=== PATIENT | female | born 1945 | race Caucasian/White ===

== ENCOUNTER 2017-03-16 11:07 | Outpatient (CLI) | payer SELFPAY | END 2017-03-16 11:08 | disposition EMS.NT | LOC: EMS 11:07 | PROVIDERS: ATTEND Surgery | DX: Z04.1 Encounter for examination and observation following transport accident (principal); V43.54XA Car driver injured in collision with van in traffic accident, initial encounter; Y92.414 Local residential or business street as the place of occurrence of the external cause ==

== ENCOUNTER 2017-04-02 09:12 | Emergency (ER) | payer MEDICARE, OTHER ==
[2017-04-02] MEDS ORDERED: DEXAMETHASONE 10 MG/ML VIAL IVP STA (10:07)
[2017-04-02] MEDS ORDERED: HYDROmorphone 1 MG/ML SYRINGE IVP STA ×2 (10:07→12:41)
[2017-04-02] MEDS ORDERED: cefTRIAXone 1 GM in SODIUM CHLORIDE 0.9% MINIBAG 100 ML IV STA (10:07)
--- NOTE | 2017-04-02 10:10 | ED Physician Documentation ---
History of Present Illness - Stated complaint Stated Complaint: FACIAL PX - Chief complaint Chief Complaint: General - History obtained from History obtained from: Patient - History of Present Illness Timing: Yesterday - Additonal information Additional information: 72-year-old female with a history of trigeminal neuralgia has had a spike in her symptoms starting yesterday and she had intolerable pain all night last night. She comes into the emergency department in tears with an ice bag to the left side of her face complaining of intermittent severe sharp stabbing pain to the face. She has had improvement with lamotrigine and this does not seem to be helping at the current time. She did not get improvement with use of Tegretol. She denies any current illness denies any cough or ear pain or problems with her teeth. Review of Systems Constitutional: denies: Fever Eyes: denies: Decreased vision Ears: denies: Ear pain Nose: reports: Congestion. denies: Rhinorrhea / runny nose Throat: denies: Sore throat Cardiac: denies: Chest pain / pressure, Palpitations Respiratory: denies: Dyspnea, Cough GI: denies: Abdominal Pain, Nausea, Vomiting : denies: Dysuria, Frequency Skin: denies: Rash Musculoskeletal: denies: Neck pain Neurologic: reports: Headache. denies: Generalized weakness, Focal weakness, Numbness, Head injury, LOC PD PAST MEDICAL HISTORY - Present Medications Home Medications: Ambulatory Orders Medication Instructions Recorded Confirmed Azithromycin [Zithromax] 250 mg PO DAILY #6 tablet 04/02/17 HYDROcod/ACETAM 5/325 [[place] 5/325] 1 - 2 ea PO Q6H PRN #15 tablet 04/02/17 Lamotrigine [Lamictal (Blue)] 25 mg PO DAILY 04/02/17 04/02/17 Lamotrigine [Lamotrigine ER] 1 tab PO BID 04/02/17 04/02/17 raNITIdine [Zantac] 150 mg PO DAILY 04/02/17 04/02/17 - Allergies Allergies/Adverse Reactions: Allergies Allergy/AdvReac Type Severity Reaction Status Date / Time No Known Drug Allergies Allergy Verified 04/02/17 09:20 PD ED PE NORMAL - Vitals Vital signs reviewed: Yes (Hypertensive mild) - General General: Alert and oriented X 3, Well developed/nourished, Other (72-year-old female is crying in pain clutching the left side of her face with an ice bag and whimpering. She looks miserable.) - HEENT HEENT: Atraumatic, PERRL, EOMI, Other - Neck Neck: Supple, no meningeal sign, No bony TTP - Cardiac Cardiac: RRR, No murmur - Respiratory Respiratory: No respiratory distress, Clear bilaterally - Abdomen Abdomen: Soft, Non tender - Back Back: No CVA TTP, No spinal TTP - Derm Derm: Normal color, Warm and dry, No rash - Extremities Extremities: No deformity, No edema - Neuro Neuro: No motor deficit, No sensory deficit Eye Opening: Spontaneous Motor: Obeys Commands Verbal: Oriented GCS Score: 15 Results - Vitals Vitals: Vital Signs - 24 hr 04/02/17 04/02/17 04/02/17 09:18 11:00 12:17 Temperature 37.3 C Heart Rate 87 81 84 Respiratory 16 16 18 Rate Blood Pressure 137/83 H 130/114 H 134/72 H O2 Saturation 100 97 95 Oxygen O2 Source Room air - Labs Labs: Laboratory Tests 04/02/17 04/02/17 10:18 10:18 WBC 7.4 RBC 5.15 Hgb 15.5 Hct 45.0 MCV 87.4 MCH 30.0 MCHC 34.4 RDW 14.5 Plt Count 345 MPV 7.2 L Neut # 5.9 Lymph # 1.0 L [place] # 0.4 Eos # 0.1 Baso # 0.1 Absolute Nucleated RBC 0.01 Nucleated RBC % 0.2 Sodium 136 Potassium 3.1 L Chloride 94 L Carbon Dioxide 21 Anion Gap 21.0 H BUN 19 Creatinine 0.8 Estimated GFR (MDRD) 70 L Glucose 121 H Calcium 10.0 Total Bilirubin 1.2 H AST 25 ALT 19 Alkaline Phosphatase 130 H Total Protein 8.5 H Albumin 4.8 Globulin 3.7 Albumin/Globulin Ratio 1.3 Lipase 20 L PD MEDICAL DECISION MAKING - ED course Complexity details: reviewed old records, reviewed results, re-evaluated patient , considered differential, d/w patient ED course: 73-year-old female with trigeminal neuralgia has an acute pain crisis that is not ameliorated with her lamotrigine. She has left OM on exam and this is treated aggressively as a potential trigger for her pain crisis. She is administered dexamethasone Rocephin and Dilaudid. She has some improvement in her overall pain but continues to have pain. Departure - Departure Disposition: 01 Home, Self Care Clinical Impression: Trigeminal neuralgia of left side of face Otitis media Qualifiers: Otitis media type: suppurative Chronicity: acute Laterality: left Recurrence: not specified as recurrent Spontaneous tympanic membrane rupture: without spontaneous rupture Qualified Code(s): H66.002 - Acute suppurative otitis media without spontaneous rupture of ear drum, left ear Condition: Stable Instructions: ED Otitis Media Acute Adult, ED Neuralgia Trigeminal Follow-Up: CARLO TRONCOSO I [Primary Care Provider] - Prescriptions: Azithromycin [Zithromax] 250 mg PO DAILY #6 tablet HYDROcod/ACETAM 5/325 [[place] 5/325] 1 - 2 ea PO Q6H PRN #15 tablet PRN Reason: Pain
[2017-04-02 10:27] LABS: BASOPHILS # (AUTO) 0.1 10^3/uL (0.0-0.1); BASOPHILS % (AUTO) 0.7 %; EOSINOPHILS # (AUTO) 0.1 10^3/uL (0.0-0.7); EOSINOPHILS % (AUTO) 1.1 %; HGB - HEMOGLOBIN 15.5 g/dL (12.0-16.0); LYMPHOCYTES % (AUTO) 14.1 %; MEAN CORPUSCULAR HGB CONC 34.4 g/dL (32.0-36.0); MEAN CORPUSCULAR VOLUME 87.4 fL (81.0-99.0); MEAN PLATELET VOLUME 7.2 fL (7.9-10.8); MONOCYTES # (AUTO) 0.4 10^3/uL (0.0-1.0); MONOCYTES % (AUTO) 5.1 %; NEUTROPHILS # (AUTO) 5.9 10^3/uL (1.5-6.6); PLT - PLATELET COUNT 345 10^3/uL (130-450); RED BLOOD COUNT 5.15 10^6/uL (4.20-5.40); RED CELL DISTRIBUTION WIDTH 14.5 % (12.0-15.0); WHITE BLOOD COUNT 7.4 x10^3/uL (4.8-10.8)
[2017-04-02 10:49] LABS: ALBUMIN 4.8 g/dL (3.2-5.5); ALBUMIN/GLOBULIN RATIO 1.3 (1.0-2.2); BILIRUBIN,TOTAL 1.2 mg/dL (0.2-1.0); CREATININE 0.8 mg/dL (0.4-1.0); TOTAL PROTEIN 8.5 g/dL (6.7-8.2)
[2017-04-02] MEDS ORDERED: POTASSIUM CHLORIDE 20 MEQ TABLET PO STA (12:29)
[2017-04-02] MEDS ORDERED: POTASSIUM BICARB 25 MEQ TABLET PO STA (12:31)
[2017-04-02 14:10] VITALS: BP 140/69
[2017-04-02] MEDS ORDERED: HYDROcod/ACETAM 5/325 MG TABLET PO STA (14:57)
== END 2017-04-02 15:02 | disposition home or self-care (01) ==
LOC: ED 09:12
DX: G50.0 Trigeminal neuralgia (principal); H66.002 Acute suppurative otitis media without spontaneous rupture of ear drum, left ear
CPT/HCPCS: 36415; 80053; 83690; 85025; 99283; 99284; A9270; J1170

== ENCOUNTER 2017-04-03 06:12 | Emergency (ER) | payer MEDICARE, OTHER ==
[2017-04-03] MEDS ORDERED: carBAMazepine 200 MG TABLET PO STA (06:25)
[2017-04-03] MEDS ORDERED: LIDOCAINE VISCOUS 2% 15 ML UDC MM STA (07:26)
[2017-04-03] MEDS ORDERED: KETOROLAC 30 MG/ML VIAL IM STA (07:27)
--- NOTE | 2017-04-03 07:32 | ED Physician Documentation ---
History of Present Illness - Stated complaint Stated Complaint: EAR PAIN - Chief complaint Chief Complaint: General - Additonal information Additional information: hx from pt all hx obtained through writing notes as pt indicates it is too painful for her to speak she states she was diagnosed with trigeminal neuralgia by a neurologist in [place] and had a work up including MRI at that time states shetried tegretol and it didn't work now takes lamotrigine has done well until last 2 weeks was seen at [facility] ED 2 weeks ago for trigeminal neuralgia flare and again in our ER yesterday will try and get records from [facility] in our ER yesterday pt was txed with steroids and dilaudid and dc with vicodin and also dx with AOM and txed with rocephin and dced on zmax pain persist pt indicates pain is to her L cheek region and that is is painful to speak or open her mouth she states this feels just like her prior trigeminal neuralgia denies fever cough NVD rash states has been compliant with her meds Review of Systems Constitutional: denies: Fever, Chills Cardiac: denies: Chest pain / pressure Respiratory: denies: Dyspnea GI: denies: Abdominal Pain Neurologic: reports: Other (L facial pain). denies: Focal weakness, Numbness PD PAST MEDICAL HISTORY - Past Medical History Past Medical History: Yes GI: GERD Other Past Medical History: Trigeminal Neuralgia - Past Surgical History Past Surgical History: No - Present Medications Home Medications: Ambulatory Orders Medication Instructions Recorded Confirmed Azithromycin [Zithromax] 250 mg PO DAILY #6 tablet 04/02/17 04/03/17 HYDROcod/ACETAM 5/325 [[place] 5/325] 1 - 2 ea PO Q6H PRN #15 tablet 04/02/17 Lamotrigine [Lamictal (Blue)] 25 mg PO DAILY 04/02/17 04/03/17 Lamotrigine [Lamotrigine ER] 1 tab PO BID 04/02/17 04/03/17 raNITIdine [Zantac] 150 mg PO DAILY 04/02/17 04/03/17 Phenytoin [Dilantin] 100 mg PO TID 04/03/17 04/03/17 - Allergies Allergies/Adverse Reactions: Allergies Allergy/AdvReac Type Severity Reaction Status Date / Time No Known Drug Allergies Allergy Verified 04/03/17 06:22 - Social History Does the pt smoke?: No Smoking Status: Never smoker Does the pt drink ETOH?: No Does the pt have substance abuse?: No - Immunizations Immunizations are current?: Yes - POLST Patient has POLST: No PD ED PE NORMAL - Vitals Vital signs reviewed: Yes - HEENT HEENT: PERRL, Ears normal. No: Moist mucous membranes (sticky, hurts to have [ t open her mouth, her mouth is pasty, she is diffusley tender to touch her face and in her mouth but no specific tooth seems swollen or tender) - Neck Neck: Supple, no meningeal sign - Cardiac Cardiac: RRR - Respiratory Respiratory: No respiratory distress, Clear bilaterally - Derm Derm: Other (both cheeks mildly flushed but no shingles rash) - Neuro Neuro: Alert and oriented X 3, global consumer sector vice president 2-12 intact, No motor deficit, No sensory deficit. No: Normal speech (too painful to speak) Results - Vitals Vitals: Vital Signs - 24 hr 04/03/17 04/03/17 04/03/17 06:14 06:42 08:05 Temperature 36.7 C Heart Rate 98 94 88 Respiratory 20 18 16 Rate Blood Pressure 140/109 H 138/60 H 145/65 H O2 Saturation 100 100 100 Oxygen O2 Source Room air PD MEDICAL DECISION MAKING - ED course ED course: pt better with toradol and lido in ear and mouth already on lamotrogine already has rx for pain meds planned to dc but pt not wanting to go home stating she does not think she can care for herself I asked if she had any friends or family she might stay with and she told me no - but i asked where she lived and she said [place] - so i asked what brought her to [facility] this AM and she says she is staying with a friend. explained that trigeminal neuralgia is not usually a problem pt need to be admitted for she indicates she was admitted before got records from [place] and it seems pt was actually admitted for same there due to inability to take PO meds and fluids per hospitalist note from [facility], neuro was consulted and recommend load dilantin which helped, her steroids and dilaudid were dced, she was supposed to be dced on dilantin ER 100 TID, lamictal 100 qam 50 noon 12 qpm as well as asa flovent HCTZ ranitidine, sertraline zantac and Vit D the chart from [place] also indicates pt is allergic to carbamazapine but I am not sure that is accurate because when i suggested that to pt she declined saying it would not work and she was given carbamazapine by date night caregiver s any apparent adverse rxn (and without any improvement) I asked the pt if she was taking her dilantin and she says yes but also says she is almost out - not clear why her neuro would not have refilled when she saw him/her , and in any case she has not taken for at least two days because she was in the ER all day yesterday and it does not seem that she mentioned that as one of her rx either visit so was not given, she can't recall if she took any last night or not - if she did it was about 3 AM will given dilantin 100 (not load), pt continuing to swab lido as needed, SW consult pending - seen by SW and concerns were addressed and per SW now pt feels safe going home Departure - Departure Disposition: 01 Home, Self Care Clinical Impression: Trigeminal neuralgia of left side of face Condition: Good Instructions: ED Neuralgia Trigeminal Comments: Continue your medications as prescribed including the dilantin. Sine the oral lidocaine helped here you can try oragel available over the counter (use only as directed on the package not more) I recommend you see a dentist. Drink plenty of fluids. Follow up with your neurologist this week. Discharge Date/Time: 04/03/17 10:26
[2017-04-03 08:06] VITALS: BP 145/65
[2017-04-03] MEDS ORDERED: PHENYTOIN ER 100 MG CAPSULE PO STA (08:16)
== END 2017-04-03 10:26 | disposition home or self-care (01) ==
LOC: EDUNIT# → ED 06:12
DX: G50.0 Trigeminal neuralgia (principal); K21.9 Gastro-esophageal reflux disease without esophagitis
CPT/HCPCS: 96372; 99283; 99284; A9270

== ENCOUNTER 2017-04-05 07:35 | Outpatient (CLI) | payer MEDICARE, OTHER | END 2017-04-05 07:36 | disposition critical access hospital (66) | LOC: EMS 07:35 | PROVIDERS: ATTEND Surgery | DX: R51 Headache (principal) | CPT/HCPCS: A0425; A0429 ==

== ENCOUNTER 2017-04-05 08:02 | Observation (INO) | payer MEDICARE, OTHER ==
[2017-04-05] MEDS ORDERED: HYDROmorphone 1 MG/ML SYRINGE IVP STA ×2 (08:25→14:07)
[2017-04-05] MEDS ORDERED: SODIUM CHLORIDE 0.9% 1,000 ML IV ONE ×2 (08:25→16:15)
[2017-04-05] MEDS ORDERED: DEXAMETHASONE 10 MG/ML VIAL IVP STA (08:25)
[2017-04-05] MEDS ORDERED: ONDANSETRON 4 MG/2 ML VIAL IVP STA (08:25)
--- NOTE | 2017-04-05 08:27 | ED Physician Documentation ---
History of Present Illness - Stated complaint Stated Complaint: FACIAL NERVE PX - History obtained from History obtained from: Patient - History of Present Illness Timing: How many weeks ago (2) - Additonal information Additional information: 72-year-old female has had a flare in her trigeminal neuralgia pain over the past 2 weeks. This became severe about 4 days ago when she came to the emergency department. At that point she was treated for otitis media she was given some dose of pain medication and this seem to help somewhat. Patient did at that time appear completely miserable with this pain. She has been in tears. At that time she was having a background severe pain and sharp lancinating pains on top of that. She has continued to have this pain and she was returned to the emergency department today with pain crisis and today she does not appear to be having the sharp winching pains as strong as she was 4 days ago. She however states that she is still having these sharp lancinating pains.She has been into see her neurologist and her dosing regimen for her lamotragine was adjusted. Today she returns to the emergency department still with pain crisis and she has not been able to eat or drink. Review of Systems Constitutional: reports: Myalgias, Fatigue. denies: Fever Eyes: denies: Decreased vision Ears: reports: Ear pain Nose: reports: Congestion Throat: reports: Dental pain / toothache Cardiac: denies: Chest pain / pressure, Palpitations Respiratory: denies: Dyspnea, Cough GI: reports: Constipation. denies: Abdominal Pain, Nausea, Vomiting : denies: Dysuria, Frequency Skin: denies: Rash Musculoskeletal: denies: Neck pain, Back pain, Extremity pain, Joint swelling Neurologic: reports: Difficulty speaking (triggers pain). denies: Generalized weakness, Focal weakness, Numbness Psychiatric: reports: Insomnia PD PAST MEDICAL HISTORY - Past Medical History GI: GERD - Past Surgical History Past Surgical History: No - Present Medications Home Medications: Ambulatory Orders Medication Instructions Recorded Confirmed Azithromycin [Zithromax] 250 mg PO DAILY #6 tablet 04/02/17 04/03/17 HYDROcod/ACETAM 5/325 [[place] 5/325] 1 - 2 ea PO Q6H PRN #15 tablet 04/02/17 Lamotrigine [Lamictal (Blue)] 25 mg PO DAILY 04/02/17 04/03/17 Lamotrigine [Lamotrigine ER] 1 tab PO BID 04/02/17 04/03/17 raNITIdine [Zantac] 150 mg PO DAILY 04/02/17 04/03/17 Phenytoin [Dilantin] 100 mg PO TID 04/03/17 04/03/17 HYDROmorphone [Dilaudid] 2 mg Q6H PRN 04/05/17 04/05/17 - Allergies Allergies/Adverse Reactions: Allergies Allergy/AdvReac Type Severity Reaction Status Date / Time No Known Drug Allergies Allergy Verified 04/05/17 08:34 - Social History Does the pt smoke?: No Smoking Status: Never smoker Does the pt drink ETOH?: No Does the pt have substance abuse?: No - Immunizations Immunizations are current?: Yes - POLST Patient has POLST: No PD ED PE NORMAL - Vitals Vital signs reviewed: Yes (hypertensive ) - General General: Alert and oriented X 3, Well developed/nourished, Other (The patient appears in pain and appears fatigued. She speaks slowly and carfully to avoid exacerbation. ) - HEENT HEENT: Atraumatic, PERRL, EOMI, Other (The left TM is with less inflamation today ) - Neck Neck: Supple, no meningeal sign, No bony TTP - Cardiac Cardiac: RRR, No murmur - Respiratory Respiratory: No respiratory distress, Clear bilaterally - Abdomen Abdomen: Soft, Non tender - Back Back: No CVA TTP, No spinal TTP - Derm Derm: Normal color, Warm and dry, No rash - Extremities Extremities: No deformity, No edema - Neuro Neuro: No motor deficit, No sensory deficit Eye Opening: Spontaneous Motor: Obeys Commands Verbal: Oriented GCS Score: 15 - Psych Psych: Other (mood is helpless and the affect is blunted. ) Results - Vitals Vitals: Vital Signs - 24 hr 04/05/17 04/05/17 04/05/17 08:05 08:30 09:30 Temperature 36.8 C Heart Rate 85 81 77 Respiratory 16 16 20 Rate Blood Pressure 162/85 H 153/70 H 150/73 H O2 Saturation 100 100 93 04/05/17 04/05/17 04/05/17 10:00 11:00 14:15 Temperature Heart Rate 82 84 85 Respiratory 16 18 Rate Blood Pressure 142/73 H 143/72 H 140/65 H O2 Saturation 93 93 96 Oxygen O2 Source Room air - EKG (time done) 1205 Rate: Rate (enter#) (76) Rhythm: NSR [place]: LAD Ischemia: Q waves Compare to prior EKG: Old EKG unavailable Computer interpretation: Agree with computer - Labs Labs: Laboratory Tests 04/05/17 04/05/17 04/05/17 08:45 08:45 08:45 WBC 7.4 RBC 4.98 Hgb 15.2 Hct 44.0 MCV 88.3 MCH 30.4 MCHC 34.5 RDW 14.2 Plt Count 359 MPV 7.0 L Neut # 6.3 Lymph # 0.7 L [place] # 0.3 Eos # 0.0 Baso # 0.0 Absolute Nucleated RBC 0.00 Nucleated RBC % 0.0 Sodium 137 Potassium 3.2 L Chloride 96 L Carbon Dioxide 23 Anion Gap 18.0 H BUN 17 Creatinine 0.7 Estimated GFR (MDRD) 82 L Glucose 141 H Calcium 9.8 Total Bilirubin 1.0 AST 23 ALT 15 Alkaline Phosphatase 108 Troponin I 0.07 Total Protein 8.2 Albumin 4.8 Globulin 3.4 Albumin/Globulin Ratio 1.4 Lipase 25 04/05/17 11:02 WBC RBC Hgb Hct MCV MCH MCHC RDW Plt Count MPV Neut # Lymph # [place] # Eos # Baso # Absolute Nucleated RBC Nucleated RBC % Sodium Potassium Chloride Carbon Dioxide Anion Gap BUN Creatinine Estimated GFR (MDRD) Glucose Calcium Total Bilirubin AST ALT Alkaline Phosphatase Troponin I 0.11 Total Protein Albumin Globulin Albumin/Globulin Ratio Lipase Procedures - IVC sono (time) 0820 Bedside IVC sono: IVC measures (cm) (0.92), IVC collapsed c insp (cm) (complete) , Dehydration (est 1.5 liters) PD MEDICAL DECISION MAKING - ED course Complexity details: reviewed old records, reviewed results, re-evaluated patient , considered differential, d/w patient ED course: 72-year-old female with a history of trigeminal neuralgia is having a pain crisis. Her pain crisis is bad enough that she has not been able to eat or drink for the past 4 days. She has not been able to sleep. She did go to another hospital emergency department yesterday and was prescribed some Dilaudid to take orally. She did not take this medication as it did not seem to be effective. Here today she appears dehydrated and IV saline is begun she is given a dose of dexamethasone and some hydromorphone. She has some relief with the hydromorphone but pain returns and she requires a second dose. She is in the emergency department for hours and her troponin is in the indeterminate range and a repeat is also in the indeterminate range. The patient appears to be in distress related to this pain crisis and I believe she needs a break from her pain and I have offered to talk to the hospitalist about admission for pain control and hydration. Dr. Saldaña has graciously agreed to care for the patient in the hospital. Departure - Departure Disposition: ED Place in Observation Clinical Impression: Trigeminal neuralgia of left side of face, Dehydration
[2017-04-05 08:54] LABS: BASOPHILS % (AUTO) 0.6 %; EOSINOPHILS % (AUTO) 0.6 %; HGB - HEMOGLOBIN 15.2 g/dL (12.0-16.0); LYMPHOCYTES # (AUTO) 0.7 10^3/uL (1.5-3.5); LYMPHOCYTES % (AUTO) 9.9 %; MEAN CORPUSCULAR HEMOGLOBIN 30.4 pg (27.0-31.0); MEAN CORPUSCULAR HGB CONC 34.5 g/dL (32.0-36.0); MEAN CORPUSCULAR VOLUME 88.3 fL (81.0-99.0); MONOCYTES # (AUTO) 0.3 10^3/uL (0.0-1.0); MONOCYTES % (AUTO) 3.7 %; NEUTROPHILS # (AUTO) 6.3 10^3/uL (1.5-6.6); NEUTROPHILS % (AUTO) 85.2 %; PLT - PLATELET COUNT 359 10^3/uL (130-450); RED BLOOD COUNT 4.98 10^6/uL (4.20-5.40); RED CELL DISTRIBUTION WIDTH 14.2 % (12.0-15.0); WHITE BLOOD COUNT 7.4 x10^3/uL (4.8-10.8)
[2017-04-05 09:08] LABS: ALBUMIN 4.8 g/dL (3.2-5.5); ALBUMIN/GLOBULIN RATIO 1.4 (1.0-2.2); CALCIUM 9.8 mg/dL (8.5-10.3); CREATININE 0.7 mg/dL (0.4-1.0); TOTAL PROTEIN 8.2 g/dL (6.7-8.2)
[2017-04-05] MEDS ORDERED: POTASSIUM BICARB 25 MEQ TABLET PO STA (10:01)
--- NOTE | 2017-04-05 15:09 | ED Physician Documentation ---
ED Addendum - Addendum Addendum: 04/05/17 15:09 unscheduled return visit - chart accessed for follow up and educational purposes
[2017-04-05] MEDS ORDERED: PROMETHAZINE 25 MG/1 ML VIAL IM PRN (16:54)
[2017-04-05] MEDS ORDERED: ONDANSETRON 4 MG/2 ML VIAL IVP PRN (16:54)
[2017-04-05] MEDS ORDERED: ACETAMINOPHEN 325 MG TABLET PO PRN (16:54)
[2017-04-05] MEDS ORDERED: SODIUM CHLORIDE FLUSH 0.9% 10 ML SYRINGE IVP PRN (16:54)
[2017-04-05] MEDS ORDERED: HYDROcod/ACETAM 5/325 MG TABLET PO PRN (16:54)
[2017-04-05] MEDS ORDERED: PROCHLORPERAZINE 10 MG/2 ML VIAL IVP PRN (16:54)
--- NOTE | 2017-04-05 17:16 | HISTORY & PHYSICAL EXAMINATION ---
Chief Complaint - Chief Complaint Chief Complaint: Left facial pain History of Present Illness - Admitted From Admitted From:: Emergency Department - History Obtained From Records Reviewed: Yes History obtained from: Patient Exam Limitations: Patient could not speak much due to pain - History of Present Illness HPI Comment/Other: Patient is a 72-year-old female with a past medical history significant for trigeminal neuralgia, hypertension and breast cancer status post 2 lumpectomies and radiation therapy who presented to the emergency department with a chief complaint of left facial pain. The patient states that she has a history of trigeminal neuralgia which was diagnosed more than 5 years ago. She states that from time to time she does have flares of her trigeminal neuralgia. She states that in the past she has been on carbamazepine but then had to be switched to phenytoin and lamotrigine. She states that her most recent trigeminal neuralgia flare started about a week ago. She states that she has been having shooting pain in her left facial area specifically over her left cheek and down into her left jaw. She states that the pain is a 10 out of 10 at its worst and it comes and goes. She states when it becomes severe it is intolerable. She states that she did see her neurologist in [place] on and had labs drawn but has had no further contact with her neurologist and has not had any changes in her doses of medication. The patient states that she has been in the emergency department 4 days in a row. She initially came here to [facility] and was treated with pain medication and then sent home on Vicodin. She then returned and again was treated with pain medication and fluids. The patient states that she was then discharged on Dilaudid p.o. The patient then went to [place] where she was seen again and released after being given pain medication. The patient states that over the last 4 days she has been unable to eat anything due to the severe pain when she tries to chew or put anything in her mouth. She states she is also been unable to sleep for the last 3 days because of the severity of the pain. The patient was having a left ear ache and was found to have otitis media over the weekend and started on antibiotics and given a dose of steroids. The patient states that despite the antibiotic she has not had any improvement in her symptoms. She returns again today to the emergency department as the pain is just not improving. The patient otherwise denies any headaches, blurred vision, runny nose, sore throat, nasal congestion, neck pain, difficulty swallowing, neck stiffness, chest pain, shortness of air, orthopnea, PND, increased lower extremity swelling , abdominal pain, nausea, vomiting, diarrhea, constipation, back pain, joint pain, joint swelling, muscle aches, recent unintentional weight loss, changes in her appetite, rash or any focal neurologic deficits. On presentation to the emergency department the patient was afebrile she was hypertensive but otherwise her vital signs were within normal limits. The patient did appear to be in significant distress and was unable to talk initially when she arrived in the emergency department secondary to her severe pain. In the emergency department the patient was given several doses of IV Dilaudid, IV fluid and Decadron. The patient's labs did reveal that she was dehydrated that she did have an elevated anion gap with decreased chloride and potassium. The patient's CBC and remainder of her electrolytes were within normal limits. Given that this was the patient's fourth presentation to the emergency department in the last 4 days with no significant improvement in her symptoms the patient was placed in observation for intractable pain from trigeminal neuralgia. History - Past Medical History Cardiovascular: reports: Hypertension Respiratory: reports: None Neuro: reports: Other (Trigeminal Neuralgia ) Endocrine/Autoimmune: reports: None GI: reports: GERD ASSOCIATE BROKER: reports: Breast cancer MRSA Hx?: No Other Past Medical History: trigeminal neuralgia - Past Surgical History General: reports: Cholecystectomy /ASSOCIATE BROKER: reports: Hysterectomy - Family & Social History Family History Comment/Other: Patient is estranged from her mother and her son. She does not know of any illnesses that run in her family. Living arrangement: At home Living Situation: Alone Social History Notes: Patient lives in [place] and has a neurologist in [place] by the name of Dr. Llanes. She lives alone and has been twice. Most recently her 4 years ago. She states that he had Alzheimer's. 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 [place] friends who live in [place]. The patient has never smoked, she does not drink alcohol and she denies any illicit drug use. The patient gave to 1 son whom she is estranged from. - POLST Patient has POLST: No POLST Status: Full Code Meds/Allgy - Home Medications Home Medications: Ambulatory Orders Medication Instructions Recorded Confirmed Azithromycin [Zithromax] 250 mg PO DAILY #6 tablet 04/02/17 04/03/17 HYDROcod/ACETAM 5/325 [[place] 5/325] 1 - 2 ea PO Q6H PRN #15 tablet 04/02/17 Lamotrigine [Lamictal (Blue)] 25 mg PO DAILY 04/02/17 04/03/17 Lamotrigine [Lamotrigine ER] 1 tab PO BID 04/02/17 04/03/17 raNITIdine [Zantac] 150 mg PO DAILY 04/02/17 04/03/17 Phenytoin [Dilantin] 100 mg PO TID 04/03/17 04/03/17 HYDROmorphone [Dilaudid] 2 mg Q6H PRN 04/05/17 04/05/17 - Allergies Allergies/Adverse Reactions: Allergies Allergy/AdvReac Type Severity Reaction Status Date / Time No Known Drug Allergies Allergy Verified 04/05/17 08:34 Review of Systems - Other Findings Other Findings: A comprehensive review of systems was performed the pertinent positives and negatives are stated above in the HPI and the remainder of the review of systems is negative. Exam - Vital Signs Reviewed Vital Signs: Yes Vital Signs: Vital Signs x48h Pulse Resp BP Pulse Ox 04/05/17 16:23 88 16 145/72 H 100 04/05/17 14:15 85 18 140/65 H 96 04/05/17 11:00 84 143/72 H 93 04/05/17 10:00 82 16 142/73 H 93 04/05/17 09:30 77 20 150/73 H 93 - Physical Exam General Appearance: positive: Alert, Moderate distress (Facial pain, patient is grimacing and has difficulty getting comfortable.), Other (The patient cannot speak for long periods of time due to her severe pain.) Eyes Bilateral: positive: Normal inspection, PERRL, EOMI, No lid inflammation, Conjunctivae nml, No scleral icterus ENT: positive: ENT inspection nml, Pharynx nml, Dry mucous membranes. negative : Purulent nasal drainage, Pharyngeal erythema, Oral lesions Neck: positive: Nml inspection, Thyroid nml, No JVD, Trachea midline. negative : Thyromegaly, Lymphadenopathy (R), Lymphadenopathy (L), Stiff neck, Carotid bruit, Tracheal deviation Respiratory: positive: Chest non-tender, No respiratory distress, Breath sounds nml. negative: Wheezes, Rales, Rhonchi Cardiovascular: positive: Regular rate & rhythm, No murmur, No gallop Peripheral Pulses: positive: 2+ Abdomen: positive: Non-tender, No organomegaly, Nml bowel sounds, No distention. negative: Guarding, Rebound, Hepatomegaly Back: positive: Nml inspection. negative: CVA tenderness (R), CVA tenderness (L ) Skin: positive: Color nml, No rash, Warm. negative: Cyanosis, Diaphoresis Extremities: positive: Non-tender, Full ROM, Nml appearance, No pedal edema Neurologic/Psychiatric: positive: Oriented x3, CN's nml (2-12), Motor nml, Sensation nml, Mood/affect nml. negative: Facial droop Conclusion/Plan - Problem List (1) Trigeminal neuralgia of left side of face Conclusion/Plan: The patient presents with trigeminal neuralgia of her left face. The patient has had severe symptoms for the last 4 days. She did see her neurologist for 5 days ago but did not have any adjustments made to her medications. She states the pain has been unbearable and despite being sent home with p.o. Vicodin and p.o. Dilaudid she has been unable to get the pain under control. The patient states that she is also not been able to eat or drink anything for the last 4 days. She states that she has not been able to sleep for the last 3 days. The patient's pain did not improve despite several doses of IV Dilaudid in the emergency department therefore the patient is being placed in observation for intractable pain due to trigeminal neuralgia. Plan: Patient is currently on lamotrigine 100 mg p.o. twice daily so we will increase the patient's lamotrigine dose to 200 mg p.o. twice daily which according to studies is the most effective dose for trigeminal neuralgia. The patient will be continued on her home dose of phenytoin and we will start the patient on baclofen 5 mg 3 times daily as adjuvant therapy to try to better control the patient's trigeminal neuralgia pain. Patient will also be placed on Tylenol, Vicodin and IV Dilaudid as needed for breakthrough pain. If patient's pain is still not controlled with this new regimen we will speak with her neurologist Dr. Llanes at [place] for further recommendations. The patient continues to fail medical therapy she may need surgical therapy. (2) Hypertension Conclusion/Plan: Patient does have a history of hypertension and is hypertensive on presentation to the emergency department. Patient's hypertension is likely secondary to pain. The patient does state that she takes hydrochlorothiazide at home. We will continue the patient's home dose of hydrochlorothiazide and try to do a better job of pain control. We will monitor the patient's blood pressure daily and titrate medication as needed. Qualifiers: Hypertension type: essential hypertension Qualified Code(s): I10 - Essential (primary) hypertension (3) Otitis media Conclusion/Plan: The patient was diagnosed with left ear otitis media several days ago and has been taking azithromycin at home. We will continue the patient's home dose of azithromycin to complete treatment for her otitis media. The patient's otitis media could be a factor in her worsening trigeminal neuralgia. Qualifiers: Otitis media type: suppurative Chronicity: acute Laterality: left Recurrence: not specified as recurrent Spontaneous tympanic membrane rupture: without spontaneous rupture Qualified Code(s): H66.002 - Acute suppurative otitis media without spontaneous rupture of ear drum, left ear (4) Hypokalemia Conclusion/Plan: Patient appears to be dehydrated with dry mucous membranes. This is likely secondary to her poor oral intake secondary to severe pain from trigeminal neuralgia over the last 3 days. Patient will be given IV fluids and potassium replacement We will monitor patient's potassium - Lab Results Lab results reviewed: Yes Fish Bones: 04/05/17 08:45 04/05/17 08:45 Other Lab Results: Laboratory Results WBC 7.4 x10^3/uL (4.8-10.8) 04/05/17 08:45 RBC 4.98 10^6/uL (4.20-5.40) 04/05/17 08:45 Hgb 15.2 g/dL (12.0-16.0) 04/05/17 08:45 Hct 44.0 % (37.0-47.0) 04/05/17 08:45 MCV 88.3 fL (81.0-99.0) 04/05/17 08:45 MCH 30.4 pg (27.0-31.0) 04/05/17 08:45 MCHC 34.5 g/dL (32.0-36.0) 04/05/17 08:45 RDW 14.2 % (12.0-15.0) 04/05/17 08:45 Plt Count 359 10^3/uL (130-450) 04/05/17 08:45 MPV 7.0 fL (7.9-10.8) L 04/05/17 08:45 Neut # 6.3 10^3/uL (1.5-6.6) 04/05/17 08:45 Lymph # 0.7 10^3/uL (1.5-3.5) L 04/05/17 08:45 [place] # 0.3 10^3/uL (0.0-1.0) 04/05/17 08:45 Eos # 0.0 10^3/uL (0.0-0.7) 04/05/17 08:45 Baso # 0.0 10^3/uL (0.0-0.1) 04/05/17 08:45 Absolute Nucleated RBC 0.00 x10^3/uL 04/05/17 08:45 Nucleated RBC % 0.0 /100WBC 04/05/17 08:45 Sodium 137 mmol/L (135-145) 04/05/17 08:45 Potassium 3.2 mmol/L (3.5-5.0) L 04/05/17 08:45 Chloride 96 mmol/L (101-111) L 04/05/17 08:45 Carbon Dioxide 23 mmol/L (21-32) 04/05/17 08:45 Anion Gap 18.0 (6-13) H 04/05/17 08:45 BUN 17 mg/dL (6-20) 04/05/17 08:45 Creatinine 0.7 mg/dL (0.4-1.0) 04/05/17 08:45 Estimated GFR (MDRD) 82 (>89) L 04/05/17 08:45 Glucose 141 mg/dL (70-100) H 04/05/17 08:45 Calcium 9.8 mg/dL (8.5-10.3) 04/05/17 08:45 Total Bilirubin 1.0 mg/dL (0.2-1.0) 04/05/17 08:45 AST 23 IU/L (10-42) 04/05/17 08:45 ALT 15 IU/L (10-60) 04/05/17 08:45 Alkaline Phosphatase 108 IU/L (42-121) 04/05/17 08:45 Troponin I 0.11 ng/mL (<0.49) 04/05/17 11:02 Total Protein 8.2 g/dL (6.7-8.2) 04/05/17 08:45 Albumin 4.8 g/dL (3.2-5.5) 04/05/17 08:45 Globulin 3.4 g/dL (2.1-4.2) 04/05/17 08:45 Albumin/Globulin Ratio 1.4 (1.0-2.2) 04/05/17 08:45 Lipase 25 U/L (22-51) 04/05/17 08:45 - EKG Results EKG Interpreted Independently: Yes EKG Findings: No ST elevations or ischemic changes are noted per Core Measures - Anticipated LOS I expect patient to be DC'd or transferred within 96 hours.: Yes - DVT/VTE - Prophylaxis VTE/DVT Prophylaxis med ordered at admit?: Yes
[2017-04-05] MEDS: SODIUM CHLORIDE FLUSH 0.9% 10 ML SYRINGE IVP SCH ×2 (18:24→22:22)
[2017-04-05] MEDS: HYDROmorphone 1 MG/ML SYRINGE IVP PRN ×2 (19:43→22:22)
[2017-04-05] MEDS: BACLOFEN 10 MG TABLET PO SCH ×2 (19:44→21:06)
[2017-04-05] MEDS: PHENYTOIN ER 100 MG CAPSULE PO SCH ×2 (19:44→21:06)
[2017-04-05] MEDS: hydroCHLOROthiazide 25 MG TABLET PO SCH (19:44)
[2017-04-05] MEDS: lamoTRIgine 100 MG TABLET PO SCH ×2 (19:45→21:06)
[2017-04-05] MEDS: SODIUM CHLORIDE 0.9% 1,000 ML IV SCH (19:46)
[2017-04-06] MEDS ORDERED: diphenhydrAMINE INJ 50 MG/ML VIAL IM STA (00:13)
[2017-04-06] MEDS: HYDROcod/ACETAM 10 MG/325 MG TABLET PO PRN ×2 (00:22→05:39)
[2017-04-06] MEDS: HYDROmorphone 1 MG/ML SYRINGE IVP PRN ×2 (00:23→04:57)
[2017-04-06] MEDS: SODIUM CHLORIDE 0.9% 1,000 ML IV SCH ×2 (03:18→13:40)
[2017-04-06] MEDS: PHENYTOIN ER 100 MG CAPSULE PO SCH ×3 (05:39→20:52)
[2017-04-06] MEDS: BACLOFEN 10 MG TABLET PO SCH ×3 (05:39→20:52)
[2017-04-06 05:54] LABS: BASOPHILS # (AUTO) 0.1 10^3/uL (0.0-0.1); BASOPHILS % (AUTO) 0.9 %; EOSINOPHILS # (AUTO) 0.2 10^3/uL (0.0-0.7); EOSINOPHILS % (AUTO) 2.4 %; HGB - HEMOGLOBIN 13.3 g/dL (12.0-16.0); LYMPHOCYTES # (AUTO) 1.8 10^3/uL (1.5-3.5); LYMPHOCYTES % (AUTO) 27.2 %; MEAN CORPUSCULAR HEMOGLOBIN 30.6 pg (27.0-31.0); MEAN CORPUSCULAR HGB CONC 33.7 g/dL (32.0-36.0); MEAN CORPUSCULAR VOLUME 90.8 fL (81.0-99.0); MEAN PLATELET VOLUME 7.1 fL (7.9-10.8); MONOCYTES # (AUTO) 0.6 10^3/uL (0.0-1.0); MONOCYTES % (AUTO) 8.5 %; PLT - PLATELET COUNT 326 10^3/uL (130-450); RED BLOOD COUNT 4.34 10^6/uL (4.20-5.40); RED CELL DISTRIBUTION WIDTH 14.1 % (12.0-15.0); WHITE BLOOD COUNT 6.5 x10^3/uL (4.8-10.8)
[2017-04-06 06:07] LABS: ALBUMIN 3.8 g/dL (3.2-5.5); ALBUMIN/GLOBULIN RATIO 1.5 (1.0-2.2); BILIRUBIN,TOTAL 0.8 mg/dL (0.2-1.0); CALCIUM 8.7 mg/dL (8.5-10.3); CREATININE 0.6 mg/dL (0.4-1.0); MAGNESIUM 1.8 mg/dL (1.7-2.8); PHOSPHORUS 2.5 mg/dL (2.5-4.6); TOTAL PROTEIN 6.4 g/dL (6.7-8.2)
[2017-04-06] MEDS: SODIUM CHLORIDE FLUSH 0.9% 10 ML SYRINGE IVP SCH ×2 (06:22→13:55)
[2017-04-06] MEDS ORDERED: PANTOPRAZOLE 40 MG VIAL IVP SCH (07:00)
[2017-04-06] MEDS ORDERED: HYDROmorphone 1 MG/ML SYRINGE IVP PRN (08:43)
[2017-04-06] MEDS: POTASSIUM CHLOR 10 MEQ/100 ML 10 MEQ/100 ML BAG IV SCH ×4 (08:53→12:57)
[2017-04-06] MEDS: hydroCHLOROthiazide 25 MG TABLET PO SCH (08:53)
[2017-04-06] MEDS: lamoTRIgine 100 MG TABLET PO SCH ×2 (08:53→20:52)
[2017-04-06] MEDS ORDERED: ENOXAPARIN 40 MG/0.4 ML SYRINGE SUBQ SCH (09:00)
[2017-04-06] MEDS ORDERED: AZITHROMYCIN 250 MG TABLET PO SCH (09:00)
[2017-04-06] MEDS ORDERED: SERTRALINE 50 MG TABLET PO SCH (09:00)
[2017-04-06] MEDS ORDERED: POLYETHYLENE GLYCOL 3350 17 GM PACKET PO SCH (09:00)
--- NOTE | 2017-04-06 14:10 | Discharge Plan ---
Discharge Plan Disposition: Home, Self Care Condition: Fair Prescriptions: HYDROcod/ACETAM 5/325 [[place] 5/325] 1 tab PO Q4HR PRN #14 tablet PRN Reason: Pain 5 to 7 Baclofen [Lioresal] 5 mg PO TID #60 tablet lamoTRIgine [LaMICtal] 200 mg PO BID #60 tablet Diet: Soft Activity Restrictions: Activity as Tolerated Shower Restrictions: No Driving Restrictions: No Weight Bearing: Full Weight Instruction Topics: ED Neuralgia Trigeminal Additional Instructions or Follow Up instructions: You had a flare of your trigeminal neuralgia and pain was so bad you were not able to take your medication or eat therefore the flare became worse and you became dehydrated. You were able to tolerate a full liquid diet while you were hospitalized and you were given IV fluid and electrolytes. You appear better hydrated. You were also able to take the oral medications for trigeminal neuralgia and pain did improve while you were hospitalized. We have added a new medication for your trigeminal neuralgia called baclofen which you will continue to take 3 times a day. Also we changed your dose of the lamotrigine to 200 mg twice a day and we wrote you a new prescription for that. You will continue taking the phenytoin three times a day and we have given you a prescription for norco which you can use for breakthrough pain. Please follow up with your PCP and your neurologist as soon as you can get an appointment. No Smoking: If you smoke, Please STOP! Call for help. Follow-up with: CARLO TRONCOSO I [Primary Care Provider] -
--- NOTE | 2017-04-06 14:39 | DISCHARGE SUMMARY ---
Discharge Summary Admit Date: 04/05/17 Discharge Date: 04/06/17 Discharging Provider: Moises Saldaña MD Primary Care Provider: Lena Roy MD Code Status: Attempt Resuscitation Condition at Discharge: Fair Discharge Disposition: [facility] DC/Xfer - DIAGNOSES Admission Diagnoses: 1. Trigeminal neuralgia of the left side of face 2. Hypertension 3. Otitis media 4. Hypokalemia Discharge Diagnoses with Status of Each Condition: 1. Trigeminal neuralgia of the left side of face: Stable 2. Hypertension: Stable 3. Otitis media: Stable 4. Hypokalemia: Improved - HPI History of Present Illness: Patient is a 72-year-old female with a past medical history significant for trigeminal neuralgia, hypertension and breast cancer status post 2 lumpectomies and radiation therapy who presented to the emergency department with a chief complaint of left facial pain. The patient states that she has a history of trigeminal neuralgia which was diagnosed more than 5 years ago. She states that from time to time she does have flares of her trigeminal neuralgia. She states that in the past she has been on carbamazepine but then had to be switched to phenytoin and lamotrigine. She states that her most recent trigeminal neuralgia flare started about a week ago. She states that she has been having shooting pain in her left facial area specifically over her left cheek and down into her left jaw. She states that the pain is a 10 out of 10 at its worst and it comes and goes. She states when it becomes severe it is intolerable. She states that she did see her neurologist in [place] on and had labs drawn but has had no further contact with her neurologist and has not had any changes in her doses of medication. The patient states that she has been in the emergency department 4 days in a row. She initially came here to [facility] and was treated with pain medication and then sent home on Vicodin. She then returned and again was treated with pain medication and fluids. The patient states that she was then discharged on Dilaudid p.o. The patient then went to [place] where she was seen again and released after being given pain medication. The patient states that over the last 4 days she has been unable to eat anything due to the severe pain when she tries to chew or put anything in her mouth. She states she is also been unable to sleep for the last 3 days because of the severity of the pain. The patient was having a left ear ache and was found to have otitis media over the weekend and started on antibiotics and given a dose of steroids. The patient states that despite the antibiotic she has not had any improvement in her symptoms. She returns again today to the emergency department as the pain is just not improving. The patient otherwise denies any headaches, blurred vision, runny nose, sore throat, nasal congestion, neck pain, difficulty swallowing, neck stiffness, chest pain, shortness of air, orthopnea, PND, increased lower extremity swelling , abdominal pain, nausea, vomiting, diarrhea, constipation, back pain, joint pain, joint swelling, muscle aches, recent unintentional weight loss, changes in her appetite, rash or any focal neurologic deficits. On presentation to the emergency department the patient was afebrile she was hypertensive but otherwise her vital signs were within normal limits. The patient did appear to be in significant distress and was unable to talk initially when she arrived in the emergency department secondary to her severe pain. In the emergency department the patient was given several doses of IV Dilaudid, IV fluid and Decadron. The patient's labs did reveal that she was dehydrated that she did have an elevated anion gap with decreased chloride and potassium. The patient's CBC and remainder of her electrolytes were within normal limits. Given that this was the patient's fourth presentation to the emergency department in the last 4 days with no significant improvement in her symptoms the patient was placed in observation for intractable pain from trigeminal neuralgia. - HOSPITAL COURSE Hospital Course: Patient was admitted for intractable pain due to her trigeminal neuralgia. While hospitalized the the patient's trigeminal neuralgia medication was adjusted as her lamotrigine dose was increased to 200 mg p.o. twice daily and she was started on baclofen 5 mg 3 times a day while her phenytoin home dose was continued. She was placed on p.o. Gates and IV Dilaudid for breakthrough pain. The patient was also given potassium replacement and IV fluids as she had not been able to eat or drink for several days due to the pain. While patient was hospitalized she was able to tolerate a full liquid diet and able to take her trigeminal neuralgia medications by mouth. The patient did require 2 doses of IV Dilaudid when she initially came to the floor however the next morning the patient was able to control pain with just oral Gates. The patient was continued on treatment for otitis media with azithromycin. The patient was continued on her home blood pressure medication and was stable throughout the hospitalization. Although patient's pain had not completely resolved the pain seem to be controlled enough that she was able to be discharged home and given prescriptions for baclofen, Gates and lamotrigine. The patient was asked to follow-up with her primary care physician and her neurologist as soon as possible. She was discharged in stable condition - ALLERGIES Allergies/Adverse Reactions: Allergies Allergy/AdvReac Type Severity Reaction Status Date / Time No Known Drug Allergies Allergy Verified 04/05/17 08:34 - MEDICATIONS Home Medications: Ambulatory Orders Medication Instructions Recorded Confirmed Phenytoin [Dilantin] 100 mg PO TID 04/03/17 04/05/17 Sertraline [Zoloft] 50 mg PO DAILY 04/05/17 04/05/17 hydroCHLOROthiazide 25 mg PO DAILY 04/05/17 04/05/17 [Hydrochlorothiazide] Baclofen [Lioresal] 5 mg PO TID #60 tablet 04/06/17 HYDROcod/ACETAM 5/325 [[place] 5/325] 1 tab PO Q4HR PRN #14 tablet 04/06/17 lamoTRIgine [LaMICtal] 200 mg PO BID #60 tablet 04/06/17 - PHYSICAL EXAM AT DISCHARGE General Appearance: positive: Alert, Mild distress (Left facial pain) Eyes Bilateral: positive: Normal inspection, PERRL, EOMI, No lid inflammation, Conjunctivae nml, No scleral icterus ENT: positive: ENT inspection nml, Pharynx nml, Dry mucous membranes. negative : Purulent nasal drainage, Pharyngeal erythema, Oral lesions Neck: positive: Nml inspection, Thyroid nml, No JVD, Trachea midline. negative : Thyromegaly, Lymphadenopathy (R), Lymphadenopathy (L), Stiff neck, Carotid bruit, Tracheal deviation Respiratory: positive: Chest non-tender, No respiratory distress, Breath sounds nml. negative: Wheezes, Rales, Rhonchi Cardiovascular: positive: Regular rate & rhythm, No murmur, No gallop Peripheral Pulses: positive: 2+ Abdomen: positive: Non-tender, No organomegaly, Nml bowel sounds, No distention. negative: Guarding, Rebound, Hepatomegaly Back: positive: Nml inspection. negative: CVA tenderness (R), CVA tenderness (L ) Skin: positive: Color nml, No rash, Warm. negative: Cyanosis, Diaphoresis Extremities: positive: Non-tender, Full ROM, Nml appearance, No pedal edema Neurologic/Psychiatric: positive: Oriented x3, CN's nml (2-12), Motor nml, Sensation nml. negative: Facial droop - LABS Result Diagrams: 04/06/17 05:34 04/06/17 05:34 Other Lab Results: Laboratory Results WBC 6.5 x10^3/uL (4.8-10.8) 04/06/17 05:34 RBC 4.34 10^6/uL (4.20-5.40) 04/06/17 05:34 Hgb 13.3 g/dL (12.0-16.0) 04/06/17 05:34 Hct 39.4 % (37.0-47.0) 04/06/17 05:34 MCV 90.8 fL (81.0-99.0) 04/06/17 05:34 MCH 30.6 pg (27.0-31.0) 04/06/17 05:34 MCHC 33.7 g/dL (32.0-36.0) 04/06/17 05:34 RDW 14.1 % (12.0-15.0) 04/06/17 05:34 Plt Count 326 10^3/uL (130-450) 04/06/17 05:34 MPV 7.1 fL (7.9-10.8) L 04/06/17 05:34 Neut # 4.0 10^3/uL (1.5-6.6) 04/06/17 05:34 Lymph # 1.8 10^3/uL (1.5-3.5) 04/06/17 05:34 [place] # 0.6 10^3/uL (0.0-1.0) 04/06/17 05:34 Eos # 0.2 10^3/uL (0.0-0.7) 04/06/17 05:34 Baso # 0.1 10^3/uL (0.0-0.1) 04/06/17 05:34 Absolute Nucleated RBC 0.00 x10^3/uL 04/06/17 05:34 Nucleated RBC % 0.0 /100WBC 04/06/17 05:34 Sodium 138 mmol/L (135-145) 04/06/17 05:34 Potassium 3.1 mmol/L (3.5-5.0) L 04/06/17 05:34 Chloride 101 mmol/L (101-111) 04/06/17 05:34 Carbon Dioxide 25 mmol/L (21-32) 04/06/17 05:34 Anion Gap 12.0 (6-13) 04/06/17 05:34 BUN 13 mg/dL (6-20) 04/06/17 05:34 Creatinine 0.6 mg/dL (0.4-1.0) 04/06/17 05:34 Estimated GFR (MDRD) 98 (>89) 04/06/17 05:34 Glucose 82 mg/dL (70-100) 04/06/17 05:34 Lactic Acid 1.1 mmol/L (0.5-2.2) 04/06/17 05:34 Calcium 8.7 mg/dL (8.5-10.3) 04/06/17 05:34 Phosphorus 2.5 mg/dL (2.5-4.6) 04/06/17 05:34 Magnesium 1.8 mg/dL (1.7-2.8) 04/06/17 05:34 Total Bilirubin 0.8 mg/dL (0.2-1.0) 04/06/17 05:34 AST 20 IU/L (10-42) 04/06/17 05:34 ALT 14 IU/L (10-60) 04/06/17 05:34 Alkaline Phosphatase 78 IU/L (42-121) 04/06/17 05:34 Troponin I 0.07 ng/mL (<0.49) 04/05/17 17:35 Total Protein 6.4 g/dL (6.7-8.2) L 04/06/17 05:34 Albumin 3.8 g/dL (3.2-5.5) 04/06/17 05:34 Globulin 2.6 g/dL (2.1-4.2) 04/06/17 05:34 Albumin/Globulin Ratio 1.5 (1.0-2.2) 04/06/17 05:34 Lipase 25 U/L (22-51) 04/05/17 08:45 - FOLLOW UP Follow Up: Patient will follow up with her PCP and her neurologist. She was prescribed baclofen and her dose of lamotrigine was adjusted to 200 mg BID. She was also prescribed norco as needed for breakthrough pain. She will continue on her previous dose of phenytoin. She will complete her course of azithromycin. - TIME SPENT Time Spent in Discharge (Minutes): 35
--- NOTE | 2017-04-06 17:23 | PROVIDER PROGRESS NOTE ---
Assessment/Plan - Problem List (1) Trigeminal neuralgia of left side of face Assessment/Plan: Improved with increased dose of lamotrigine and adding baclofen Not requiring any doses of IV dilaudid today Able to take meds PO Was discharged but no one came to pick her up as patients friend would not answer phone Patient thinks friends maybe abandoning her She cannot go home alone and care for herself Patient will remain for a second night in observation (2) Hypertension Qualifiers: Hypertension type: essential hypertension Qualified Code(s): I10 - Essential (primary) hypertension Assessment/Plan: On HCTZ stable (3) Otitis media Qualifiers: Otitis media type: suppurative Chronicity: acute Laterality: left Recurrence: not specified as recurrent Spontaneous tympanic membrane rupture: without spontaneous rupture Qualified Code(s): H66.002 - Acute suppurative otitis media without spontaneous rupture of ear drum, left ear Assessment/Plan: COntinue azithromycin (4) Hypokalemia Assessment/Plan: K was 3.1 this am given IV potassium riders - Current Meds Current Meds: Current Medications Generic Name Dose Route Start Last Admin Trade Name Freq PRN Reason Stop Dose Admin Acetaminophen/Hydrocodone Bitart 1 tab 04/05/17 16:54 04/06/17 05:39 [place] 10 Mg/325 Mg PO 1 tab Q4HR PRN Administration Pain 8 to 10 Azithromycin 250 mg 04/06/17 09:00 04/06/17 08:53 Zithromax PO 250 mg DAILY TORI Administration Baclofen 5 mg 04/05/17 17:00 04/06/17 13:55 Lioresal PO 5 mg TID TORI Administration Enoxaparin Sodium 40 mg 04/06/17 09:00 04/06/17 08:54 Lovenox SUBQ 40 mg DAILY TORI Administration Hydrochlorothiazide 25 mg 04/05/17 17:00 04/06/17 08:53 Hydrodiuril PO 25 mg DAILY TORI Administration Hydromorphone HCl 1 mg 04/06/17 08:43 04/06/17 12:57 Dilaudid Inj Syringe IVP 1 mg Q8H PRN Administration Pain 8 to 10 Sodium Chloride 1,000 mls @ 100 mls/hr 04/05/17 17:00 04/06/17 13:40 Normal Saline 0.9% IV 100 mls/hr .Q10H TORI Administration Lamotrigine 200 mg 04/05/17 16:54 04/06/17 08:53 Lamictal PO 200 mg BID TORI Administration Pantoprazole Sodium 40 mg 04/06/17 07:00 04/06/17 06:21 Protonix IVP 40 mg QDAC TORI Administration Phenytoin Sodium 100 mg 04/05/17 17:00 04/06/17 13:55 Dilantin PO 100 mg TID TORI Administration Polyethylene Glycol 17 gm 04/06/17 09:00 04/06/17 08:54 Miralax PO Not Given DAILY TORI Sertraline HCl 50 mg 04/06/17 09:00 04/06/17 08:54 Zoloft PO 50 mg DAILY TORI Administration Sodium Chloride 10 ml 04/05/17 16:54 04/05/17 19:44 Normal Saline Flush 0.9% IVP 10 ml PRN PRN Administration NEEDED PER PROVIDER ORDERS Sodium Chloride 10 ml 04/05/17 22:00 04/06/17 13:55 Normal Saline Flush 0.9% IVP Not Given Q8HR TORI - Lab Result Lab results reviewed: Yes Fish Bone Diagrams: 04/06/17 05:34 04/06/17 05:34 - Diagnostic Imaging Results Diagnostic Imaging Results: Final report reviewed - Additional Planning Condition/Complexity: Improved My Orders: My Active Orders 04/05/17 17:00 hydroCHLOROthiazide [Hydrodiuril] 25 mg PO DAILY 04/06/17 08:43 HYDROmorphone INJ SYRINGE [Dilaudid Inj Syringe] 1 mg IVP Q8H PRN 04/06/17 09:00 Sertraline [Zoloft] 50 mg PO DAILY 04/06/17 14:27 Discharge [] .ONCE Plan Discussed with:: Patient Time Spent: 31-60 minutes Subjective - Subjective Patient Reports: Pain (Still has pain on ther left side of her face but it is better controlled today.), Other (Her friends would not pickle pumper phone and pick her up she feels abandoned and was crying. Still not talking much and uses paper and pen to communicate do to pain) Nursing Reports: No Complaints Objective Vital Signs: Vital Signs - 24 hr 04/05/17 04/05/17 04/05/17 17:31 18:18 22:00 Temperature 37.4 C 37.1 C Heart Rate 80 Heart Rate [ 77 75 Brachial] Respiratory 20 20 20 Rate Blood Pressure 145/74 H Blood Pressure 161/71 H 173/69 H [Left Brachial artery] O2 Saturation 95 97 96 04/06/17 04/06/17 04/06/17 00:02 05:05 07:36 Temperature 37.5 C 37.1 C 36.9 C Heart Rate Heart Rate [ 84 83 72 Brachial] Respiratory 18 18 16 Rate Blood Pressure Blood Pressure 133/66 H 148/59 H 114/59 L [Left Brachial artery] O2 Saturation 94 98 96 04/06/17 04/06/17 12:16 17:13 Temperature 37.7 C H 37.0 C Heart Rate Heart Rate [ 82 76 Brachial] Respiratory 19 18 Rate Blood Pressure Blood Pressure 159/80 H 157/62 H [Left Brachial artery] O2 Saturation 96 98 Oxygen O2 Source Room air I&O (Last 24 Hrs): Intake and Output Totals x24h 04/04/17 04/05/17 04/06/17 23:59 23:59 23:59 Intake Total 620 3040 Output Total 1000 Balance 620 2040 General: Alert, Oriented x3, Cooperative, Mild distress (pain left side of her face) HEENT: Atraumatic, PERRLA, EOMI, Mucous membr. moist/pink Neck: Supple, No JVD, No thyromegaly, +2 carotid pulse wo bruit, No LAD Lymphatic: no adenopathy Neuro: Alert, Non Focal, CN 2-12 Grossly Intact, Oriented Times 3 Cardiovascular: Regular rate, Normal S1, Normal S2, No murmurs Respiratory: Chest non-tender, No respiratory distress, Breath sounds nml Abdomen: Normal bowel sounds, Soft, No tenderness, No hepatospenomegaly, No masses Extremities: No clubbing, No cyanosis, No edema, Normal pulses, No tenderness/ swelling Skin: No rashes, No breakdown - Results Results: Laboratory Results WBC 6.5 x10^3/uL (4.8-10.8) 04/06/17 05:34 RBC 4.34 10^6/uL (4.20-5.40) 04/06/17 05:34 Hgb 13.3 g/dL (12.0-16.0) 04/06/17 05:34 Hct 39.4 % (37.0-47.0) 04/06/17 05:34 MCV 90.8 fL (81.0-99.0) 04/06/17 05:34 MCH 30.6 pg (27.0-31.0) 04/06/17 05:34 MCHC 33.7 g/dL (32.0-36.0) 04/06/17 05:34 RDW 14.1 % (12.0-15.0) 04/06/17 05:34 Plt Count 326 10^3/uL (130-450) 04/06/17 05:34 MPV 7.1 fL (7.9-10.8) L 04/06/17 05:34 Neut # 4.0 10^3/uL (1.5-6.6) 04/06/17 05:34 Lymph # 1.8 10^3/uL (1.5-3.5) 04/06/17 05:34 [place] # 0.6 10^3/uL (0.0-1.0) 04/06/17 05:34 Eos # 0.2 10^3/uL (0.0-0.7) 04/06/17 05:34 Baso # 0.1 10^3/uL (0.0-0.1) 04/06/17 05:34 Absolute Nucleated RBC 0.00 x10^3/uL 04/06/17 05:34 Nucleated RBC % 0.0 /100WBC 04/06/17 05:34 Sodium 138 mmol/L (135-145) 04/06/17 05:34 Potassium 3.1 mmol/L (3.5-5.0) L 04/06/17 05:34 Chloride 101 mmol/L (101-111) 04/06/17 05:34 Carbon Dioxide 25 mmol/L (21-32) 04/06/17 05:34 Anion Gap 12.0 (6-13) 04/06/17 05:34 BUN 13 mg/dL (6-20) 04/06/17 05:34 Creatinine 0.6 mg/dL (0.4-1.0) 04/06/17 05:34 Estimated GFR (MDRD) 98 (>89) 04/06/17 05:34 Glucose 82 mg/dL (70-100) 04/06/17 05:34 Lactic Acid 1.1 mmol/L (0.5-2.2) 04/06/17 05:34 Calcium 8.7 mg/dL (8.5-10.3) 04/06/17 05:34 Phosphorus 2.5 mg/dL (2.5-4.6) 04/06/17 05:34 Magnesium 1.8 mg/dL (1.7-2.8) 04/06/17 05:34 Total Bilirubin 0.8 mg/dL (0.2-1.0) 04/06/17 05:34 AST 20 IU/L (10-42) 04/06/17 05:34 ALT 14 IU/L (10-60) 04/06/17 05:34 Alkaline Phosphatase 78 IU/L (42-121) 04/06/17 05:34 Troponin I 0.07 ng/mL (<0.49) 04/05/17 17:35 Total Protein 6.4 g/dL (6.7-8.2) L 04/06/17 05:34 Albumin 3.8 g/dL (3.2-5.5) 04/06/17 05:34 Globulin 2.6 g/dL (2.1-4.2) 04/06/17 05:34 Albumin/Globulin Ratio 1.5 (1.0-2.2) 04/06/17 05:34 Lipase 25 U/L (22-51) 04/05/17 08:45
[2017-04-06 19:31] VITALS: BP 163/85
== END 2017-04-06 20:57 | disposition home or self-care (01) ==
LOC: EDUNIT# → ED 08:02 → OBS 16:54
PROVIDERS: ADMIT Internal Medicine; ATTEND Internal Medicine
DX: G50.0 Trigeminal neuralgia (principal); E86.0 Dehydration; E87.6 Hypokalemia; H66.002 Acute suppurative otitis media without spontaneous rupture of ear drum, left ear; I10 Essential (primary) hypertension; K21.9 Gastro-esophageal reflux disease without esophagitis; Z85.3 Personal history of malignant neoplasm of breast; Z92.3 Personal history of irradiation; Z79.899 Other long term (current) drug therapy
CPT/HCPCS: 36415; 80053; 83605; 83690; 83735; 84100; 84484; 85025; 93005; 96361; 96372; 96374; 96375; 96376; 99284; 99285; A9270; G0378; J1170; J1650

== ENCOUNTER 2017-04-07 10:24 | Outpatient (CLI) | payer MEDICARE, OTHER | END 2017-04-07 10:25 | disposition critical access hospital (66) | LOC: EMS 10:24 | PROVIDERS: ATTEND Surgery | DX: R51 Headache (principal); M54.2 Cervicalgia | CPT/HCPCS: A0425; A0427 ==

== ENCOUNTER 2017-04-07 10:52 | Emergency (ER) | payer MEDICARE, OTHER ==
--- NOTE | 2017-04-07 12:13 | ED Physician Documentation ---
History of Present Illness - Stated complaint Stated Complaint: NECK PX - Chief complaint Chief Complaint: Heent - History obtained from History obtained from: Patient (pt is here for evaluation of her trigeminal neuralgia pain. she has been here multiple times in the past week and was just discharged yesterday from an observation hospital stay. she states that she continues to have pain. has not talked with her primary care or neurologist about this. she does not know the medications that she has and what she is taking.) Review of Systems Constitutional: denies: Fever, Chills Eyes: denies: Loss of vision, Discharge Ears: denies: Ear pain, Drainage/discharge Nose: denies: Rhinorrhea / runny nose, Sinus pressure / pain Throat: denies: Sore throat Cardiac: denies: Chest pain / pressure, Palpitations Respiratory: denies: Dyspnea, Cough GI: denies: Abdominal Pain, Nausea, Vomiting, Constipation, Diarrhea : denies: Dysuria, Frequency Skin: denies: Rash, Lesions Musculoskeletal: reports: Other (dose have left sided facial pain). denies: Back pain Neurologic: reports: Headache. denies: Generalized weakness, Numbness PD PAST MEDICAL HISTORY - Past Medical History Cardiovascular: Hypertension Respiratory: None Neuro: Other Endocrine/Autoimmune: None GI: GERD PATIENT RELATIONS LIAISON: Breast cancer - Past Surgical History Past Surgical History: No General: Cholecystectomy /PATIENT RELATIONS LIAISON: Hysterectomy - Present Medications Home Medications: Ambulatory Orders Medication Instructions Recorded Confirmed Phenytoin [Dilantin] 100 mg PO TID 04/03/17 04/07/17 Sertraline [Zoloft] 50 mg PO DAILY 04/05/17 04/07/17 hydroCHLOROthiazide 25 mg PO DAILY 04/05/17 04/07/17 [Hydrochlorothiazide] Baclofen [Lioresal] 5 mg PO TID #60 tablet 04/06/17 04/07/17 HYDROcod/ACETAM 5/325 [[place] 5/325] 1 tab PO Q4HR PRN #14 tablet 04/06/17 lamoTRIgine [LaMICtal] 200 mg PO BID #60 tablet 04/06/17 04/07/17 - Allergies Allergies/Adverse Reactions: Allergies Allergy/AdvReac Type Severity Reaction Status Date / Time No Known Drug Allergies Allergy Verified 04/05/17 08:34 - Social History Does the pt smoke?: No Smoking Status: Never smoker Does the pt drink ETOH?: No Does the pt have substance abuse?: No - Immunizations Immunizations are current?: Yes - POLST Patient has POLST: No POLST Status: Full Code PD ED PE NORMAL - Vitals Vital signs reviewed: Yes - General General: Alert and oriented X 3, Well developed/nourished. No: No acute distress (mild distress) - HEENT HEENT: Atraumatic - Cardiac Cardiac: RRR, No murmur - Respiratory Respiratory: No respiratory distress - Abdomen Abdomen: Soft - Derm Derm: Normal color, No rash - Neuro Neuro: vault manager 2-12 intact, Normal speech, Other (increased sensation to the left side of her face) Eye Opening: Spontaneous Motor: Obeys Commands Verbal: Oriented GCS Score: 15 - Psych Psych: Normal mood, Normal affect Results - Vitals Vitals: Vital Signs - 24 hr 04/07/17 04/07/17 04/07/17 10:54 12:40 13:51 Temperature 37.2 C 36.5 C Heart Rate 81 78 83 Respiratory 18 16 16 Rate Blood Pressure 134/90 H 180/81 H 158/78 H O2 Saturation 100 99 98 04/07/17 15:11 Temperature Heart Rate 80 Respiratory 16 Rate Blood Pressure 136/84 H O2 Saturation 100 Oxygen O2 Source Room air - Labs Labs: Laboratory Tests 04/07/17 04/07/17 04/07/17 13:16 13:24 13:24 WBC 7.3 RBC 4.48 Hgb 13.5 Hct 39.5 MCV 88.1 MCH 30.1 MCHC 34.2 RDW 13.9 Plt Count 332 MPV 7.3 L Neut # 5.2 Lymph # 1.3 L [place] # 0.6 Eos # 0.2 Baso # 0.0 Absolute Nucleated RBC 0.00 Nucleated RBC % 0.0 ESR 5 Sodium 138 Potassium 3.1 L Chloride 100 L Carbon Dioxide 28 Anion Gap 10.0 BUN 8 Creatinine 0.5 Estimated GFR (MDRD) 121 Glucose 94 Calcium 9.2 C-Reactive Protein < 1.0 Phenytoin 4.6 PD MEDICAL DECISION MAKING - ED course Complexity details: reviewed results, d/w patient, d/w automotive internet sales consultant ED course: Pt here multiple times for left sided facial pain. she is unsure as to what medications that she has been taking. she does not know the doses that she is taking. I talked with her neurologist who states that this was the problem the last time that he saw her. He states that it is difficult to say that it is a treatment failure when we do not know if she is actually taking the medications. I discussed this with the patient. she had paperwork from her hospital admission with the paper rx still attached. I talked to the patient about this. I marked the medications on her MAR that she should have at home and the 3 she needed to fill. I marked carleen paper that lists her meds and the doses that she should be taking. I told her that she needed to call her neurologist tomorrow for a follow up. she has a rx for pain meds that she needs to fill. she expressed understanding. social work also evaluated the pt in the ER. Departure - Departure Disposition: 01 Home, Self Care Clinical Impression: Trigeminal neuralgia Condition: Good Instructions: ED Neuralgia Trigeminal Comments: I have marked the medications that you need to fill and have marked the paper from your hospital discharge that lists all of your medications that you should be taking and how to take them. I talked with your neurologist who states that you need to call him to get a follow up appointment. You pain will continue as long as you are not taking your medications like instructed.
[2017-04-07] MEDS ORDERED: HYDROmorphone 1 MG/ML SYRINGE IVP STA ×2 (12:32→15:03)
[2017-04-07 13:50] LABS: BUN - BLOOD UREA NITROGEN 8 mg/dL (6-20); CALCIUM 9.2 mg/dL (8.5-10.3); CARBON DIOXIDE - CO2 28 mmol/L (21-32); CHLORIDE 100 mmol/L (101-111); CREATININE 0.5 mg/dL (0.4-1.0); GFR - MDRD 121 (>89); GLUCOSE 94 mg/dL (70-100); PHENYTOIN (DILANTIN) 4.6 ug/mL; SODIUM 138 mmol/L (135-145)
[2017-04-07 13:54] LABS: BASOPHILS % (AUTO) 0.5 %; EOSINOPHILS # (AUTO) 0.2 10^3/uL (0.0-0.7); EOSINOPHILS % (AUTO) 2.5 %; HGB - HEMOGLOBIN 13.5 g/dL (12.0-16.0); LYMPHOCYTES # (AUTO) 1.3 10^3/uL (1.5-3.5); LYMPHOCYTES % (AUTO) 17.5 %; MEAN CORPUSCULAR HEMOGLOBIN 30.1 pg (27.0-31.0); MEAN CORPUSCULAR HGB CONC 34.2 g/dL (32.0-36.0); MEAN CORPUSCULAR VOLUME 88.1 fL (81.0-99.0); MEAN PLATELET VOLUME 7.3 fL (7.9-10.8); MONOCYTES # (AUTO) 0.6 10^3/uL (0.0-1.0); MONOCYTES % (AUTO) 8.2 %; NEUTROPHILS # (AUTO) 5.2 10^3/uL (1.5-6.6); NEUTROPHILS % (AUTO) 71.3 %; PLT - PLATELET COUNT 332 10^3/uL (130-450); RED BLOOD COUNT 4.48 10^6/uL (4.20-5.40); RED CELL DISTRIBUTION WIDTH 13.9 % (12.0-15.0); WHITE BLOOD COUNT 7.3 x10^3/uL (4.8-10.8)
[2017-04-07 13:54] LABS: CRP - C-REACTIVE PROTEIN < 1.0 mg/dL (0-1.0)
[2017-04-07] MEDS ORDERED: HYDROcod/ACETAM 5/325 MG TABLET PO STA (16:35)
[2017-04-07 18:06] VITALS: BP 139/79
== END 2017-04-07 18:07 | disposition home or self-care (01) ==
LOC: EDUNIT# → ED 10:52
DX: G50.0 Trigeminal neuralgia (principal); K21.9 Gastro-esophageal reflux disease without esophagitis; Z85.3 Personal history of malignant neoplasm of breast
CPT/HCPCS: 36415; 80048; 80185; 85025; 85651; 86140; 96374; 96376; 99284; A9270; J1170